=== PATIENT | male | born 1935 | race Caucasian/White ===

== ENCOUNTER 2016-05-12 09:33 | Day surgery (SDC) | payer MEDICARE ==
[~2016-05-12 09:33] MED LIST: AMPICILLIN SODIUM 1 G in NS 0.9% (MINI-BAG PLUS) 50 ML IV ONE; FENTANYL 250 MCG/5 ML AMP IV PRN; GENTAMICIN 80MG/100ML PREMIX 100 ML IV ONE; LACTATED RINGERS 1,000 ML IV SCH; MIDAZOLAM HCL 5 MG/5 ML VIAL IV PRN
[2016-05-12] MEDS ORDERED: PUMP TUBING ONE (10:12)
[2016-05-12] MEDS ORDERED: IV START KIT ONE (10:13)
[2016-05-12] MEDS ORDERED: LACTATED RINGERS 1,000 ML ONE (10:13)
[2016-05-12] MEDS ORDERED: MIDAZOLAM HCL 5 MG/5 ML VIAL ONE (10:19)
[2016-05-12] MEDS ORDERED: FENTANYL 5 ML ONE (10:20)
[2016-05-12] MEDS ORDERED: SODIUM CHLORIDE 0.9% FLUSH 10 ML ONE (11:13)
== END 2016-05-12 12:24 | disposition home or self-care (01) ==
LOC: SDC 09:33
PROVIDERS: ATTEND Internal Medicine Gastroenterology
PROC: 0DJD8ZZ Inspection of Lower Intestinal Tract, Via Natural or Artificial Opening Endoscopic (ICD-10-PCS; principal; 2016-05-12)
DX: D50.9 Iron deficiency anemia, unspecified (principal); K57.30 Diverticulosis of large intestine without perforation or abscess without bleeding; Z86.010 Personal history of colon polyps; Z87.891 Personal history of nicotine dependence; Z95.2 Presence of prosthetic heart valve; Z79.01 Long term (current) use of anticoagulants; Z79.82 Long term (current) use of aspirin; E11.9 Type 2 diabetes mellitus without complications; E78.5 Hyperlipidemia, unspecified; I10 Essential (primary) hypertension